=== PATIENT | male | born 1940 | race African-American/Black ===

== ENCOUNTER 2017-04-21 16:38 | Inpatient (IN) | payer MEDICARE ==
--- NOTE | 2017-04-21 17:46 | ED Physician Chart ---
ED Chief Complaint/HPI - Patient Information Date Seen:: 04/21/17 Time Seen:: 17:40 Chief Complaint:: right hip pain History of Present Illness:: Patient has had right hip pain for the last 2 weeks worse for the last 2 days. He initially denied trauma saying he slept on his right hip but later caretakers stated he fell and he agreed to that. Patient is able to walk with a cane as he did before the right hip pain started. Allergies:: Allergies Allergy/AdvReac Type Severity Reaction Status Date / Time No Known Allergies Allergy Verified 04/21/17 16:59 Vitals:: Vital Signs - 8 hr 04/21/17 16:51 Temp 98.2 F HR 72 RR 74 BP 203/106 O2 Sat % 98 Historian:: Patient, Other (caretakers) Review:: Nurse's Note Reviewed ED Review of Systems - Review of Systems General/Constitutional: No fever, No chills Skin: No skin lesions Head: No headache Eyes: No loss of vision ENT: No earache Neck: No neck pain, No swelling Cardio Vascular: No chest pain, No palpitations Pulmonary: No SOB GI: No nausea, No vomiting G/U: No dysuria Musculoskeletal: Bone or joint pain Endocrine: No polyuria Psychiatric: No prior psych history, No anxiety Hematopoietic: No bruising Allergic/Immuno: No urticaria, No angioedema Neurological: No syncope, No focal symptoms ED Past Medical History - Past Medical History Past Medical History: Other (urinary,) Family History: Other (mother when he was 8 years old and father was an alcoholic) Social History: Smoker Surgical History: other (both hips and both knees) Psychiatricy History: None Medication: Reviewed Family Medical History - Family Member Father History Unknown: Yes ED Physical Exam - Physical Examination General/Constitutional: No distress Other Gen/Cons comments:: Mildly chronically ill-appearing Head: Atraumatic Eyes: Lids, conjuctiva normal, PERRL Skin: Nl inspection, No rash ENMT: External ears, nose nl Other ENMT comments:: Edentulous Neck: No nuchal rigidity Respiratory: Nl effort/Exclusion, Clear to Auscultation Cardio Vascular: RRR GI: No tenderness/rebounding/guarding, No organomegaly, No hernia : No CVA tenderness Other Extremities comments:: Right hip: [id number] rotation causes lateral hip pain; both knees full range of motion ED Labs/Radiology/EKG Results - Radiology Results Results: right hip: prosthesis in place ED Septic Shock - . Is Septic Shock (SBP<90, OR Lactate>4 mmol\L) present?: No - <6hrs of presentation: Vital Signs: Vital Signs - 8 hr 04/21/17 16:51 Temp 98.2 F HR 72 RR 74 BP 203/106 O2 Sat % 98 ED Reassessment (Disposition) - Reassessment Reassessment Condition:: Unchanged - Diagnosis Diagnosis:: Intractable right hip pain; nicotine abuse; right hip prosthesis - Patient Disposition Admitted to:: Med/Surg Spoke to:: Rigo Kulkarni Admitting Medical Physician:: iRgo Kulkarni Condition at Disposition:: Stable, Unchanged
[2017-04-21] MEDS ORDERED: Mag Sulfate 2gm/50mL Premix 2 GM/50 ML BAG IV ONE (20:02)
[2017-04-21] MEDS ORDERED: Morphine Sulfate 2 mg/mL 1mL Syr IVP PRN (20:02)
[2017-04-21] MEDS ORDERED: Albuterol Nebulizer 2.5mg/3mL HHN PRN (20:02)
[2017-04-21] MEDS ORDERED: Ipratropium Neb 0.5 mg/2.5 mL UD IH PRN (20:02)
[2017-04-21] MEDS ORDERED: Maalox 30 mL Cup PO PRN (20:02)
[2017-04-21] MEDS ORDERED: D5-0.9%NS 1,000 ML IV SCH (20:15)
--- NOTE | 2017-04-22 08:14 | Diagnostic Imaging Report ---
Exam: Right hip joint. HISTORY: pain Findings: Multiple views of right hip joint reviewed. The study demonstrates satisfactory positioning of total right hip prosthesis. Prosthesis is well within the acetabular fossa. The visualized pelvis is intact. Left hip prosthesis is noted. IMPRESSION: 1. Satisfactory positioning of the total right hip prosthesis, no evidence of fracture or dislocation. 2. Incidentally noted degenerative changes of lumbar spine.
[2017-04-22 10:20] LABS: % BASOPHILS 0.2 % (0.0-2.0); % EOSINOPHILS 2.1 % (0.0-5.0); % LYMPHOCYTES 38.3 % (20.0-50.0); % MONOCYTES 8.8 % (2.0-10.0); % NEUTROPHILS 50.6 % (40.0-80.0); HEMATOCRIT 39.2 % (41.0-60); HEMOGLOBIN 12.8 gm/dL (12-16); MEAN CELL VOLUME 86.8 fl (80-99); MEAN CORPUSCULAR HEMOGLOBIN 28.3 pg (27.0-31.0); MEAN CORPUSCULAR HGB CONC 32.6 pg (28.0-36.0); MEAN PLATELET VOLUME 7.5 fl; NEUTROPHILE ABSOLUTE 3.4 Th/cmm (1.8-8.0); PLATELET COUNT 222 Th/cmm (150-400); RED BLOOD COUNT 4.51 Mil/cmm (3.80-5.80); RED CELL DISTRIBUTION WIDTH 13.4 % (11.5-20.0); WHITE BLOOD COUNT 6.6 Th/cmm (4.8-10.8)
[2017-04-22 10:33] LABS: ANION GAP 5.6 (7.0-16.0); BUN - UREA NITROGEN 17 mg/dL (7-25); BUN/CREATININE RATIO 15.5; CALCIUM SERUM 8.7 mg/dL (8.6-10.3); CARBON DIOXIDE 30.7 mEq/L (21.0-31.0); CHLORIDE 107 mEq/L (98-107); CREATININE - SERUM 1.1 mg/dL (0.7-1.3); GLUCOSE 86 mg/dL (70-105); POTASSIUM SERUM 3.3 mEq/L (3.5-5.1); SODIUM SERUM 140 mEq/L (136-145)
[2017-04-22] MEDS ORDERED: VTE Chemical Prophylaxis Screen/Admission MC PRN (11:37)
--- NOTE | 2017-04-22 11:46 | Internal Medicine Prog Note ---
Internal Medicine Subjective - Subjective Service Date: 04/22/17 (DICTATED [facility] [id number]) Internal Medicine Objective - Results Result Diagrams: 04/22/17 10:00 04/22/17 10:00 Recent Labs: Laboratory Last Values WBC 6.6 Th/cmm (4.8-10.8) 04/22/17 10:00 RBC 4.51 Mil/cmm (3.80-5.80) 04/22/17 10:00 Hgb 12.8 gm/dL (12-16) 04/22/17 10:00 Hct 39.2 % (41.0-60) L 04/22/17 10:00 MCV 86.8 fl (80-99) 04/22/17 10:00 MCH 28.3 pg (27.0-31.0) 04/22/17 10:00 MCHC Differential 32.6 pg (28.0-36.0) 04/22/17 10:00 RDW 13.4 % (11.5-20.0) 04/22/17 10:00 Plt Count 222 Th/cmm (150-400) 04/22/17 10:00 MPV 7.5 fl 04/22/17 10:00 Neutrophils % 50.6 % (40.0-80.0) 04/22/17 10:00 Lymphocytes % 38.3 % (20.0-50.0) 04/22/17 10:00 Monocytes % 8.8 % (2.0-10.0) 04/22/17 10:00 Eosinophils % 2.1 % (0.0-5.0) 04/22/17 10:00 Basophils % 0.2 % (0.0-2.0) 04/22/17 10:00 Sodium 140 mEq/L (136-145) 04/22/17 10:00 Potassium 3.3 mEq/L (3.5-5.1) L 04/22/17 10:00 Chloride 107 mEq/L (98-107) 04/22/17 10:00 Carbon Dioxide 30.7 mEq/L (21.0-31.0) 04/22/17 10:00 Anion Gap 5.6 (7.0-16.0) L 04/22/17 10:00 BUN 17 mg/dL (7-25) 04/22/17 10:00 Creatinine 1.1 mg/dL (0.7-1.3) 04/22/17 10:00 Est GFR ( Amer) TNP 04/22/17 10:00 Est GFR (Non-Af Amer) TNP 04/22/17 10:00 BUN/Creatinine Ratio 15.5 04/22/17 10:00 Glucose 86 mg/dL (70-105) 04/22/17 10:00 POC Glucose 110 MG/DL (70 - 105) H 04/21/17 22:19 Calcium 8.7 mg/dL (8.6-10.3) 04/22/17 10:00 - Physical Exam Vitals and I&O: Vital Signs Temp 98.1 F 04/22/17 08:00 Pulse 71 04/22/17 08:00 Resp 19 04/22/17 09:54 BP 159/80 04/22/17 05:25 Pulse Ox 96 04/22/17 08:00 Intake & Output 04/21/17 04/22/17 04/22/17 18:59 06:59 18:59 Intake Total 400 Balance 400 Weight (lbs) 229 lb 3 oz Intake: Oral 400 Other: # Voids 2 # Bowel Movements 0 Stool Characteristics Soft Soft Formed Formed Active Medications: Current Medications Acetaminophen (Tylenol) 650 mg PO Q4H PRN PRN Reason: Mild Pain Or Fever above 101 Stop: 06/20/17 20:01 Acetaminophen/Hydrocodone Bitart ([place] 5mg/325mg) 1 tab PO Q12H PRN PRN Reason: Pain (Moderate) Stop: 06/20/17 20:00 Acetaminophen/Hydrocodone Bitart ([place] 5mg/325mg) 1 tab PO Q4H PRN PRN Reason: Pain (Severe) Stop: 06/20/17 20:01 Al Hydrox/Mg Hydrox/Simethicone (Maalox) 30 ml PO Q6H PRN PRN Reason: Dyspepsia Stop: 06/20/17 20:01 Albuterol Sulfate (Albuterol 2.5mg/3ml Neb Ud) 2.5 mg HHN Q2HRT PRN PRN Reason: Shortness of Breath or Wheeze Stop: 06/20/17 20:01 Aspirin (Ecotrin) 81 mg PO DAILY ENE Stop: 06/21/17 08:59 Last Admin: 04/22/17 08:46 Dose: 81 mg Dextrose/Sodium Chloride (D5-0.9%Ns) 1,000 mls @ 80 mls/hr IV .[id number] [facility] Stop: 06/20/17 20:14 Ipratropium [place] (Atrovent Neb 0.5mg/2.5ml) 0.5 mg IH Q2HRT PRN PRN Reason: Shortness of Breath or Wheeze Stop: 06/20/17 20:01 Lorazepam (Ativan) 1 mg PO DAILY ENE PRN Reason: Protocol Stop: 06/21/17 08:59 Miscellaneous (Vte Chemical Prophylaxis Screen/ Admission) 1 ea [facility] PRN PRN PRN Reason: PROTOCOL Stop: 06/21/17 11:36 Morphine Sulfate (Morphine) 2 mg IVP Q4H PRN PRN Reason: Pain (Severe) Stop: 06/20/17 20:01 Nicotine (Nicotine Transdermal System) 7 mg TD DAILY [facility] Stop: 06/22/17 08:59 Ondansetron HCl (Zofran) 4 mg IV Q8H PRN PRN Reason: Nausea / Vomiting Stop: 06/20/17 20:01 Zolpidem Tartrate (Ambien) 5 mg PO HS PRN PRN Reason: Insomnia Stop: 06/20/17 20:00 Internal Medicine Assmt/Plan - Assessment Assessment: Acute Pain Syndrome Gen. Weakness htnooc Nicotine abuse hypokalemia
[2017-04-22] MEDS ORDERED: Potassium Chloride 20 mEq ER Tab PO ONE (12:38)
--- NOTE | 2017-04-22 13:12 | History & Physical ---
ADMIT DATE: 04/21/2017 CHIEF COMPLAINT: Right hip pain. HISTORY OF PRESENT ILLNESS: This is a 76-year-old -Filipino male who is a resident of [facility], states that he has been having right hip pain for the last 2 weeks and the pain has been unbearable the last 2 days. For this reason, the patient was brought to the ER to be evaluated. According to the patient's property developer, the patient apparently fell. PAST MEDICAL HISTORY: UTI, the patient states that he does not remember what other history he has, but based on the patient's medications, the patient has chronic pain syndrome. FAMILY HISTORY: Mother when he was 8 years old. Father was alcoholic. SOCIAL HISTORY: The patient is currently a half past smoker. The patient is also [facility] patient. PAST SURGICAL HISTORY: Bilateral hips and bilateral knees. PSYCHIATRIC HISTORY: None. MEDICATIONS: [place] and Ambien. REVIEW OF SYSTEMS: GENERAL: Denies any fevers, any chills. CARDIOVASCULAR: Denies chest pain. RESPIRATORY: Denies any shortness of breath. GASTROINTESTINAL: Denies any nausea, vomiting, or abdominal pain. GENITOURINARY: Denies any dysuria. MUSCULOSKELETAL: The patient complained of right hip pain. All other systems are reviewed by me and are negative. PHYSICAL EXAMINATION: GENERAL: The patient is awake, alert, no apparent distress. VITAL SIGNS: Temperature 98.1, heart rate 71, respirations 19, O2 96%. HEENT: Head; normocephalic, atraumatic. NECK: Supple. No mass. LUNGS: Clear bilaterally. HEART: Regular rate and rhythm. ABDOMEN: Soft, nontender. LABORATORY DATA: WBC 6.6, H and H 12.8 and 39.2, platelet of 222. Sodium 140, potassium 3.2, chloride 107, BUN 17, creatinine 1.1. DIAGNOSTICS: The patient had a hip x-ray done and the impression is satisfactory positioning of the total right hip prosthesis, no evidence of fracture or dislocation, incidentally noted degenerative changes of lumbar spine. ASSESSMENT: Acute pain syndrome, generalized weakness, nicotine abuse, hypokalemia. PLAN: The patient to be admitted to the telemetry unit. We will get PT eval. Pain management. We will continue to monitor the patient. JOB# [id number]
[2017-04-22] MEDS ORDERED: Nicotine 14 mg/24 hr Tdm TD SCH (13:30)
[2017-04-22] MEDS: Hydrocodone/APAP 5mg/325mg Tab PO PRN (20:59)
[2017-04-23] MEDS: Hydrocodone/APAP 5mg/325mg Tab PO PRN ×4 (00:10→20:34)
[2017-04-23 06:36] LABS: % BASOPHILS 0.6 % (0.0-2.0); % EOSINOPHILS 2.4 % (0.0-5.0); % LYMPHOCYTES 48.8 % (20.0-50.0); % MONOCYTES 6.7 % (2.0-10.0); % NEUTROPHILS 41.5 % (40.0-80.0); HEMATOCRIT 37.4 % (41.0-60); HEMOGLOBIN 12.7 gm/dL (12-16); MEAN CELL VOLUME 84.4 fl (80-99); MEAN CORPUSCULAR HEMOGLOBIN 28.6 pg (27.0-31.0); MEAN CORPUSCULAR HGB CONC 33.8 pg (28.0-36.0); MEAN PLATELET VOLUME 7.7 fl; NEUTROPHILE ABSOLUTE 3.2 Th/cmm (1.8-8.0); PLATELET COUNT 226 Th/cmm (150-400); RED BLOOD COUNT 4.43 Mil/cmm (3.80-5.80); RED CELL DISTRIBUTION WIDTH 13.2 % (11.5-20.0); WHITE BLOOD COUNT 7.6 Th/cmm (4.8-10.8)
[2017-04-23 06:44] LABS: ALB/GLOB RATIO 0.9 (1.0-1.8); ALKALINE PHOSPHATASE 83 U/L (34-104); ANION GAP 7.6 (7.0-16.0); BILIRUBIN,TOTAL 0.4 mg/dL (0.3-1.0); BUN - UREA NITROGEN 14 mg/dL (7-25); BUN/CREATININE RATIO 15.6; CALCIUM SERUM 8.6 mg/dL (8.6-10.3); CARBON DIOXIDE 25.6 mEq/L (21.0-31.0); CHLORIDE 106 mEq/L (98-107); CREATININE - SERUM 0.9 mg/dL (0.7-1.3); GLUCOSE 91 mg/dL (70-105); POTASSIUM SERUM 3.2 mEq/L (3.5-5.1); SGOT 19 U/L (13-39); SGPT/ALT 17 U/L (7-52); SODIUM SERUM 136 mEq/L (136-145)
[2017-04-23] MEDS: Nicotine 14 mg/24 hr Tdm TD SCH (08:36)
[2017-04-23] MEDS ORDERED: Nicotine 7 mg/24 hr Tdm TD SCH (09:00)
[2017-04-23] MEDS ORDERED: Nicotine 14 mg/24 hr Tdm TD ONE (13:14)
[2017-04-23] MEDS ORDERED: Potassium Chloride 20 mEq ER Tab PO ONE ×2 (13:56→16:00)
--- NOTE | 2017-04-23 15:14 | Internal Medicine Prog Note ---
Internal Medicine Subjective - Subjective Service Date: 04/23/17 Patient seen and examined:: with staff Patient is:: awake, verbal Patient Complaints of:: other (HIP PAIN) Internal Medicine Objective - Results Result Diagrams: 04/23/17 05:56 04/23/17 05:56 Recent Labs: Laboratory Last Values WBC 7.6 Th/cmm (4.8-10.8) 04/23/17 05:56 RBC 4.43 Mil/cmm (3.80-5.80) 04/23/17 05:56 Hgb 12.7 gm/dL (12-16) 04/23/17 05:56 Hct 37.4 % (41.0-60) L 04/23/17 05:56 MCV 84.4 fl (80-99) 04/23/17 05:56 MCH 28.6 pg (27.0-31.0) 04/23/17 05:56 MCHC Differential 33.8 pg (28.0-36.0) 04/23/17 05:56 RDW 13.2 % (11.5-20.0) 04/23/17 05:56 Plt Count 226 Th/cmm (150-400) 04/23/17 05:56 MPV 7.7 fl 04/23/17 05:56 Neutrophils % 41.5 % (40.0-80.0) 04/23/17 05:56 Lymphocytes % 48.8 % (20.0-50.0) 04/23/17 05:56 Monocytes % 6.7 % (2.0-10.0) 04/23/17 05:56 Eosinophils % 2.4 % (0.0-5.0) 04/23/17 05:56 Basophils % 0.6 % (0.0-2.0) 04/23/17 05:56 Sodium 136 mEq/L (136-145) 04/23/17 05:56 Potassium 3.2 mEq/L (3.5-5.1) L 04/23/17 05:56 Chloride 106 mEq/L (98-107) 04/23/17 05:56 Carbon Dioxide 25.6 mEq/L (21.0-31.0) 04/23/17 05:56 Anion Gap 7.6 (7.0-16.0) 04/23/17 05:56 BUN 14 mg/dL (7-25) 04/23/17 05:56 Creatinine 0.9 mg/dL (0.7-1.3) 04/23/17 05:56 Est GFR ( Amer) TNP 04/23/17 05:56 Est GFR (Non-Af Amer) TNP 04/23/17 05:56 BUN/Creatinine Ratio 15.6 04/23/17 05:56 Glucose 91 mg/dL (70-105) 04/23/17 05:56 POC Glucose 110 MG/DL (70 - 105) H 04/21/17 22:19 Calcium 8.6 mg/dL (8.6-10.3) 04/23/17 05:56 Magnesium 2.0 mg/dL (1.9-2.7) 04/23/17 05:56 Total Bilirubin 0.4 mg/dL (0.3-1.0) 04/23/17 05:56 AST 19 U/L (13-39) 04/23/17 05:56 ALT 17 U/L (7-52) 04/23/17 05:56 Alkaline Phosphatase 83 U/L (34-104) 04/23/17 05:56 Total Protein 7.4 gm/dL (6.0-8.3) 04/23/17 05:56 Albumin 3.5 gm/dL (4.2-5.5) L 04/23/17 05:56 Globulin 3.9 gm/dL 04/23/17 05:56 Albumin/Globulin Ratio 0.9 (1.0-1.8) L 04/23/17 05:56 TSH 4.00 uIU/ml (0.34-5.60) 04/23/17 05:56 - Physical Exam Vitals and I&O: Vital Signs Temp 97.7 F 04/23/17 12:00 Pulse 82 04/23/17 12:00 Resp 20 04/23/17 12:57 BP 159/117 04/23/17 12:00 Pulse Ox 98 04/23/17 12:00 Intake & Output 04/22/17 04/23/17 04/23/17 18:59 06:59 18:59 Intake Total 1500 Balance 1500 Weight (lbs) 229 lb 3 oz 238 lb 4.8 oz Intake: Oral 1500 Other: # Voids 4 3 # Bowel Movements 0 Stool Characteristics Soft Soft Soft Formed Active Medications: Current Medications Acetaminophen (Tylenol) 650 mg PO Q4H PRN PRN Reason: Mild Pain Or Fever above 101 Stop: 06/20/17 20:01 Acetaminophen/Hydrocodone Bitart ([place] 5mg/325mg) 1 tab PO Q12H PRN PRN Reason: Pain (Moderate) Stop: 06/20/17 20:00 Acetaminophen/Hydrocodone Bitart ([place] 5mg/325mg) 1 tab PO Q4H PRN PRN Reason: Pain (Severe) Stop: 06/20/17 20:01 Last Admin: 04/23/17 05:12 Dose: 1 tab Al Hydrox/Mg Hydrox/Simethicone (Maalox) 30 ml PO Q6H PRN PRN Reason: Dyspepsia Stop: 06/20/17 20:01 Albuterol Sulfate (Albuterol 2.5mg/3ml Neb Ud) 2.5 mg HHN Q2HRT PRN PRN Reason: Shortness of Breath or Wheeze Stop: 06/20/17 20:01 Aspirin (Ecotrin) 81 mg PO DAILY [facility] Stop: 06/21/17 08:59 Last Admin: 04/23/17 08:35 Dose: 81 mg Dextrose/Sodium Chloride (D5-0.9%Ns) 1,000 mls @ 80 mls/hr IV .[id number] [facility] Stop: 06/20/17 20:14 Ipratropium [place] (Atrovent Neb 0.5mg/2.5ml) 0.5 mg IH Q2HRT PRN PRN Reason: Shortness of Breath or Wheeze Stop: 06/20/17 20:01 Lorazepam (Ativan) 1 mg PO DAILY ENE PRN Reason: Protocol Stop: 06/21/17 08:59 Last Admin: 04/23/17 08:35 Dose: 1 mg Miscellaneous (Vte Chemical Prophylaxis Screen/ Admission) 1 ea [facility] PRN PRN PRN Reason: PROTOCOL Stop: 06/21/17 11:36 Morphine Sulfate (Morphine) 2 mg IVP Q4H PRN PRN Reason: Pain (Severe) Stop: 06/20/17 20:01 Last Admin: 04/22/17 13:52 Dose: 2 mg Nicotine (Nicotine Transdermal System) 14 mg TD DAILY [facility] Stop: 06/22/17 08:59 Last Admin: 04/23/17 08:36 Dose: 14 mg Ondansetron HCl (Zofran) 4 mg IV Q8H PRN PRN Reason: Nausea / Vomiting Stop: 06/20/17 20:01 Zolpidem Tartrate (Ambien) 5 mg PO HS PRN PRN Reason: Insomnia Stop: 06/20/17 20:00 Last Admin: 04/22/17 21:47 Dose: 5 mg General: alert HEENT: NC/AT, PERRLA Neck: Supple Lungs: CTAB Cardiovascular: RRR, Normal S1, Normal S2, without murmur Abdomen: soft, non-tender, non-distended, positive bowel sound Extremities: clear Internal Medicine Assmt/Plan - Assessment Assessment: Acute Pain Syndrome Gen. Weakness htnooc Nicotine abuse hypokalemia - Plan Plan: REPLACE K+ MONITOR ELECTROLYTES AM LABS FALL PRECAUTIONS CONTINUE CURRENT PLAN OF CARE
[2017-04-24 06:30] LABS: ANION GAP 9.4 (7.0-16.0); BUN - UREA NITROGEN 16 mg/dL (7-25); BUN/CREATININE RATIO 14.5; CALCIUM SERUM 9.5 mg/dL (8.6-10.3); CHLORIDE 104 mEq/L (98-107); CREATININE - SERUM 1.1 mg/dL (0.7-1.3); GLUCOSE 98 mg/dL (70-105); POTASSIUM SERUM 3.4 mEq/L (3.5-5.1); SODIUM SERUM 138 mEq/L (136-145)
[2017-04-24 06:50] LABS: % BASOPHILS 0.2 % (0.0-2.0); % EOSINOPHILS 1.4 % (0.0-5.0); % LYMPHOCYTES 40.5 % (20.0-50.0); % MONOCYTES 7.9 % (2.0-10.0); HEMATOCRIT 40.9 % (41.0-60); HEMOGLOBIN 14.1 gm/dL (12-16); MEAN CELL VOLUME 84.4 fl (80-99); MEAN CORPUSCULAR HEMOGLOBIN 29.2 pg (27.0-31.0); MEAN CORPUSCULAR HGB CONC 34.6 pg (28.0-36.0); MEAN PLATELET VOLUME 7.5 fl; NEUTROPHILE ABSOLUTE 4.6 Th/cmm (1.8-8.0); PLATELET COUNT 254 Th/cmm (150-400); RED BLOOD COUNT 4.84 Mil/cmm (3.80-5.80); RED CELL DISTRIBUTION WIDTH 13.7 % (11.5-20.0)
[2017-04-24] MEDS: Nicotine 14 mg/24 hr Tdm TD SCH (08:25)
[2017-04-24] MEDS: Hydrocodone/APAP 5mg/325mg Tab PO PRN ×2 (08:26→20:35)
[2017-04-24] MEDS ORDERED: Potassium Chloride 20 mEq ER Tab PO ONE (14:57)
--- NOTE | 2017-04-24 14:57 | Internal Medicine Prog Note ---
Internal Medicine Subjective - Subjective Service Date: 04/24/17 Patient is:: awake, verbal Patient Complaints of:: other (HIP PAIN) Internal Medicine Objective - Results Result Diagrams: 04/24/17 06:02 04/24/17 06:02 Recent Labs: Laboratory Last Values WBC 9.0 Th/cmm (4.8-10.8) 04/24/17 06:02 RBC 4.84 Mil/cmm (3.80-5.80) 04/24/17 06:02 Hgb 14.1 gm/dL (12-16) 04/24/17 06:02 Hct 40.9 % (41.0-60) L 04/24/17 06:02 MCV 84.4 fl (80-99) 04/24/17 06:02 MCH 29.2 pg (27.0-31.0) 04/24/17 06:02 MCHC Differential 34.6 pg (28.0-36.0) 04/24/17 06:02 RDW 13.7 % (11.5-20.0) 04/24/17 06:02 Plt Count 254 Th/cmm (150-400) 04/24/17 06:02 MPV 7.5 fl 04/24/17 06:02 Neutrophils % 50.0 % (40.0-80.0) 04/24/17 06:02 Lymphocytes % 40.5 % (20.0-50.0) 04/24/17 06:02 Monocytes % 7.9 % (2.0-10.0) 04/24/17 06:02 Eosinophils % 1.4 % (0.0-5.0) 04/24/17 06:02 Basophils % 0.2 % (0.0-2.0) 04/24/17 06:02 Sodium 138 mEq/L (136-145) 04/24/17 06:02 Potassium 3.4 mEq/L (3.5-5.1) L 04/24/17 06:02 Chloride 104 mEq/L (98-107) 04/24/17 06:02 Carbon Dioxide 28.0 mEq/L (21.0-31.0) 04/24/17 06:02 Anion Gap 9.4 (7.0-16.0) 04/24/17 06:02 BUN 16 mg/dL (7-25) 04/24/17 06:02 Creatinine 1.1 mg/dL (0.7-1.3) 04/24/17 06:02 Est GFR ( Amer) TNP 04/24/17 06:02 Est GFR (Non-Af Amer) TNP 04/24/17 06:02 BUN/Creatinine Ratio 14.5 04/24/17 06:02 Glucose 98 mg/dL (70-105) 04/24/17 06:02 POC Glucose 110 MG/DL (70 - 105) H 04/21/17 22:19 Calcium 9.5 mg/dL (8.6-10.3) 04/24/17 06:02 Magnesium 2.0 mg/dL (1.9-2.7) 04/23/17 05:56 Total Bilirubin 0.4 mg/dL (0.3-1.0) 04/23/17 05:56 AST 19 U/L (13-39) 04/23/17 05:56 ALT 17 U/L (7-52) 04/23/17 05:56 Alkaline Phosphatase 83 U/L (34-104) 04/23/17 05:56 Total Protein 7.4 gm/dL (6.0-8.3) 04/23/17 05:56 Albumin 3.5 gm/dL (4.2-5.5) L 04/23/17 05:56 Globulin 3.9 gm/dL 04/23/17 05:56 Albumin/Globulin Ratio 0.9 (1.0-1.8) L 04/23/17 05:56 TSH 4.00 uIU/ml (0.34-5.60) 04/23/17 05:56 - Physical Exam Vitals and I&O: Vital Signs Temp 97.4 F 04/24/17 11:55 Pulse 87 04/24/17 11:55 Resp 18 04/24/17 11:55 BP 133/95 04/24/17 11:55 Pulse Ox 98 04/24/17 11:55 Intake & Output 04/23/17 04/24/17 04/24/17 18:59 06:59 18:59 Intake Total 1500 Output Total 400 Balance 1500 -400 Weight (lbs) 238 lb 4.8 oz 238 lb Intake: Oral 1500 Output: Urine 400 Other: # Voids 5 # Bowel Movements 1 Stool Characteristics Soft Soft Active Medications: Current Medications Acetaminophen (Tylenol) 650 mg PO Q4H PRN PRN Reason: Mild Pain Or Fever above 101 Stop: 06/20/17 20:01 Acetaminophen/Hydrocodone Bitart ([place] 5mg/325mg) 1 tab PO Q12H PRN PRN Reason: Pain (Moderate) Stop: 06/20/17 20:00 Last Admin: 04/24/17 08:26 Dose: 1 tab Acetaminophen/Hydrocodone Bitart ([place] 5mg/325mg) 1 tab PO Q4H PRN PRN Reason: Pain (Severe) Stop: 06/20/17 20:01 Last Admin: 04/23/17 05:12 Dose: 1 tab Al Hydrox/Mg Hydrox/Simethicone (Maalox) 30 ml PO Q6H PRN PRN Reason: Dyspepsia Stop: 06/20/17 20:01 Albuterol Sulfate (Albuterol 2.5mg/3ml Neb Ud) 2.5 mg HHN Q2HRT PRN PRN Reason: Shortness of Breath or Wheeze Stop: 06/20/17 20:01 Aspirin (Ecotrin) 81 mg PO DAILY [facility] Stop: 06/21/17 08:59 Last Admin: 04/24/17 09:18 Dose: 81 mg Dextrose/Sodium Chloride (D5-0.9%Ns) 1,000 mls @ 80 mls/hr IV .[id number] [facility] Stop: 06/20/17 20:14 Ipratropium [place] (Atrovent Neb 0.5mg/2.5ml) 0.5 mg IH Q2HRT PRN PRN Reason: Shortness of Breath or Wheeze Stop: 06/20/17 20:01 Lorazepam (Ativan) 1 mg PO DAILY ENE PRN Reason: Protocol Stop: 06/21/17 08:59 Last Admin: 04/24/17 08:26 Dose: 1 mg Miscellaneous (Vte Chemical Prophylaxis Screen/ Admission) 1 ea [facility] PRN PRN PRN Reason: PROTOCOL Stop: 06/21/17 11:36 Morphine Sulfate (Morphine) 2 mg IVP Q4H PRN PRN Reason: Pain (Severe) Stop: 06/20/17 20:01 Last Admin: 04/22/17 13:52 Dose: 2 mg Nicotine (Nicotine Transdermal System) 14 mg TD DAILY [facility] Stop: 06/22/17 08:59 Last Admin: 04/24/17 08:25 Dose: 14 mg Ondansetron HCl (Zofran) 4 mg IV Q8H PRN PRN Reason: Nausea / Vomiting Stop: 06/20/17 20:01 Zolpidem Tartrate (Ambien) 5 mg PO HS PRN PRN Reason: Insomnia Stop: 06/20/17 20:00 Last Admin: 04/23/17 20:34 Dose: 5 mg General: alert HEENT: NC/AT, PERRLA Neck: Supple Lungs: CTAB Cardiovascular: RRR, Normal S1, Normal S2, without murmur Abdomen: soft, non-tender, non-distended, positive bowel sound Extremities: clear Internal Medicine Assmt/Plan - Assessment Assessment: Acute Pain Syndrome Gen. Weakness htnooc Nicotine abuse hypokalemia - Plan Plan: MONITOR ELECTROLYTES AM LABS FALL PRECAUTIONS CONTINUE CURRENT PLAN OF CARE
[2017-04-25 06:18] LABS: % BASOPHILS 0.1 % (0.0-2.0); % EOSINOPHILS 2.4 % (0.0-5.0); % MONOCYTES 8.9 % (2.0-10.0); % NEUTROPHILS 48.6 % (40.0-80.0); HEMATOCRIT 38.6 % (41.0-60); HEMOGLOBIN 12.8 gm/dL (12-16); MEAN CELL VOLUME 86.1 fl (80-99); MEAN CORPUSCULAR HEMOGLOBIN 28.5 pg (27.0-31.0); MEAN CORPUSCULAR HGB CONC 33.1 pg (28.0-36.0); MEAN PLATELET VOLUME 7.8 fl; NEUTROPHILE ABSOLUTE 4.3 Th/cmm (1.8-8.0); PLATELET COUNT 204 Th/cmm (150-400); RED BLOOD COUNT 4.48 Mil/cmm (3.80-5.80); RED CELL DISTRIBUTION WIDTH 13.6 % (11.5-20.0); WHITE BLOOD COUNT 8.9 Th/cmm (4.8-10.8)
[2017-04-25 06:26] LABS: ANION GAP 10.3 (7.0-16.0); BUN - UREA NITROGEN 24 mg/dL (7-25); CALCIUM SERUM 8.9 mg/dL (8.6-10.3); CARBON DIOXIDE 23.6 mEq/L (21.0-31.0); CHLORIDE 105 mEq/L (98-107); CREATININE - SERUM 1.2 mg/dL (0.7-1.3); GLUCOSE 80 mg/dL (70-105); POTASSIUM SERUM 3.9 mEq/L (3.5-5.1); SODIUM SERUM 135 mEq/L (136-145)
[2017-04-25] MEDS: Nicotine 14 mg/24 hr Tdm TD SCH (09:02)
[2017-04-25] MEDS: Hydrocodone/APAP 5mg/325mg Tab PO PRN ×2 (09:02→14:54)
--- NOTE | 2017-04-25 13:26 | Internal Medicine Prog Note ---
Internal Medicine Subjective - Subjective Service Date: 04/25/17 (dc summary [id number]) Patient is:: awake, verbal Patient Complaints of:: other (HIP PAIN) Internal Medicine Objective - Results Result Diagrams: 04/25/17 05:45 04/25/17 05:45 Recent Labs: Laboratory Last Values WBC 8.9 Th/cmm (4.8-10.8) 04/25/17 05:45 RBC 4.48 Mil/cmm (3.80-5.80) 04/25/17 05:45 Hgb 12.8 gm/dL (12-16) 04/25/17 05:45 Hct 38.6 % (41.0-60) L 04/25/17 05:45 MCV 86.1 fl (80-99) 04/25/17 05:45 MCH 28.5 pg (27.0-31.0) 04/25/17 05:45 MCHC Differential 33.1 pg (28.0-36.0) 04/25/17 05:45 RDW 13.6 % (11.5-20.0) 04/25/17 05:45 Plt Count 204 Th/cmm (150-400) 04/25/17 05:45 MPV 7.8 fl 04/25/17 05:45 Neutrophils % 48.6 % (40.0-80.0) 04/25/17 05:45 Lymphocytes % 40.0 % (20.0-50.0) 04/25/17 05:45 Monocytes % 8.9 % (2.0-10.0) 04/25/17 05:45 Eosinophils % 2.4 % (0.0-5.0) 04/25/17 05:45 Basophils % 0.1 % (0.0-2.0) 04/25/17 05:45 Sodium 135 mEq/L (136-145) L 04/25/17 05:45 Potassium 3.9 mEq/L (3.5-5.1) 04/25/17 05:45 Chloride 105 mEq/L (98-107) 04/25/17 05:45 Carbon Dioxide 23.6 mEq/L (21.0-31.0) 04/25/17 05:45 Anion Gap 10.3 (7.0-16.0) 04/25/17 05:45 BUN 24 mg/dL (7-25) 04/25/17 05:45 Creatinine 1.2 mg/dL (0.7-1.3) 04/25/17 05:45 Est GFR ( Amer) TNP 04/25/17 05:45 Est GFR (Non-Af Amer) TNP 04/25/17 05:45 BUN/Creatinine Ratio 20.0 04/25/17 05:45 Glucose 80 mg/dL (70-105) 04/25/17 05:45 POC Glucose 110 MG/DL (70 - 105) H 04/21/17 22:19 Calcium 8.9 mg/dL (8.6-10.3) 04/25/17 05:45 Magnesium 2.0 mg/dL (1.9-2.7) 04/23/17 05:56 Total Bilirubin 0.4 mg/dL (0.3-1.0) 04/23/17 05:56 AST 19 U/L (13-39) 04/23/17 05:56 ALT 17 U/L (7-52) 04/23/17 05:56 Alkaline Phosphatase 83 U/L (34-104) 04/23/17 05:56 Total Protein 7.4 gm/dL (6.0-8.3) 04/23/17 05:56 Albumin 3.5 gm/dL (4.2-5.5) L 04/23/17 05:56 Globulin 3.9 gm/dL 04/23/17 05:56 Albumin/Globulin Ratio 0.9 (1.0-1.8) L 04/23/17 05:56 TSH 4.00 uIU/ml (0.34-5.60) 04/23/17 05:56 - Physical Exam Vitals and I&O: Vital Signs Temp 97.6 F 04/25/17 08:00 Pulse 70 04/25/17 10:12 Resp 18 04/25/17 08:01 BP 149/85 04/25/17 10:12 Pulse Ox 97 04/25/17 08:01 Intake & Output 04/24/17 04/25/17 04/25/17 18:59 06:59 18:59 Intake Total 1999 Balance 1999 Weight (lbs) 238 lb 226 lb 11.2 oz Intake: Oral 1999 Other: # Voids 5 Stool Characteristics Soft Soft Active Medications: Current Medications Acetaminophen (Tylenol) 650 mg PO Q4H PRN PRN Reason: Mild Pain Or Fever above 101 Stop: 06/20/17 20:01 Acetaminophen/Hydrocodone Bitart ([place] 5mg/325mg) 1 tab PO Q12H PRN PRN Reason: Pain (Moderate) Stop: 06/20/17 20:00 Last Admin: 04/25/17 09:02 Dose: 1 tab Acetaminophen/Hydrocodone Bitart ([place] 5mg/325mg) 1 tab PO Q4H PRN PRN Reason: Pain (Severe) Stop: 06/20/17 20:01 Last Admin: 04/23/17 05:12 Dose: 1 tab Al Hydrox/Mg Hydrox/Simethicone (Maalox) 30 ml PO Q6H PRN PRN Reason: Dyspepsia Stop: 06/20/17 20:01 Albuterol Sulfate (Albuterol 2.5mg/3ml Neb Ud) 2.5 mg HHN Q2HRT PRN PRN Reason: Shortness of Breath or Wheeze Stop: 06/20/17 20:01 Aspirin (Ecotrin) 81 mg PO DAILY [facility] Stop: 06/21/17 08:59 Last Admin: 04/25/17 09:02 Dose: 81 mg Dextrose/Sodium Chloride (D5-0.9%Ns) 1,000 mls @ 80 mls/hr IV .[id number] [facility] Stop: 06/20/17 20:14 Ipratropium [place] (Atrovent Neb 0.5mg/2.5ml) 0.5 mg IH Q2HRT PRN PRN Reason: Shortness of Breath or Wheeze Stop: 06/20/17 20:01 Lorazepam (Ativan) 1 mg PO DAILY [facility] PRN Reason: Protocol Stop: 06/21/17 08:59 Last Admin: 04/25/17 09:02 Dose: 1 mg Miscellaneous ([employer] Prophylaxis Screen/ Admission) 1 ea [facility] PRN PRN PRN Reason: PROTOCOL Stop: 06/21/17 11:36 Morphine Sulfate (Morphine) 2 mg IVP Q4H PRN PRN Reason: Pain (Severe) Stop: 06/20/17 20:01 Last Admin: 04/22/17 13:52 Dose: 2 mg Nicotine (Nicotine Transdermal System) 14 mg TD DAILY [facility] Stop: 06/22/17 08:59 Last Admin: 04/25/17 09:02 Dose: 14 mg Ondansetron HCl (Zofran) 4 mg IV Q8H PRN PRN Reason: Nausea / Vomiting Stop: 06/20/17 20:01 Zolpidem Tartrate (Ambien) 5 mg PO HS PRN PRN Reason: Insomnia Stop: 06/20/17 20:00 Last Admin: 04/23/17 20:34 Dose: 5 mg General: alert HEENT: NC/AT, PERRLA Neck: Supple Lungs: CTAB Cardiovascular: RRR, Normal S1, Normal S2, without murmur Abdomen: soft, non-tender, non-distended, positive bowel sound Extremities: clear Internal Medicine Assmt/Plan - Assessment Assessment: Acute Pain Syndrome Gen. Weakness htnooc Nicotine abuse hypokalemia - Plan Plan: MONITOR ELECTROLYTES AM LABS FALL PRECAUTIONS CONTINUE CURRENT PLAN OF CARE
--- NOTE | 2017-04-25 20:55 | Discharge Summary ---
DATE OF DISCHARGE: 04/25/2017 DISCHARGE DIAGNOSES: Acute pain syndrome, generalized weakness, nicotine abuse, hypokalemia, which has resolved. HISTORY OF PRESENT ILLNESS: A 76-year-old male, who is a resident of a [facility] states that he has been having pain for the last 2 weeks. The patient states that the pain has been unbearable for the last few days, for this reason the patient was admitted. PHYSICAL EXAMINATION: GENERAL: The patient is well developed, well nourished, no acute distress. VITAL SIGNS: Stable. HEAD: Normocephalic, atraumatic. NECK: Supple. No mass. LUNGS: Clear bilaterally . ABDOMEN: Soft, nontender. HOSPITAL COURSE: During the hospital stay, the patient was admitted to the telemetry unit. The patient had PT evaluation, tolerated it well. The patient's pain was being managed. The patient had an episode of hypokalemia for the past 2 days and they were replaced. The patient is stable for discharge. CONDITION UPON DISCHARGE: Fair. DISPOSITION: [facility] and [facility]. JOB# [id number]
== END 2017-04-25 17:05 | DRG 641 ==
LOC: ER 16:38 → MSI 18:00 → TELE 22:00 → MSI 04-24 10:16
PROVIDERS: ADMIT Internal Medicine; ATTEND Internal Medicine
DX: E87.6 Hypokalemia (principal); I10 Essential (primary) hypertension; M25.551 Pain in right hip; R53.1 Weakness; G89.4 Chronic pain syndrome; Z96.653 Presence of artificial knee joint, bilateral; Z96.643 Presence of artificial hip joint, bilateral; Z53.29 Procedure and treatment not carried out because of patient's decision for other reasons; Z72.0 Tobacco use; R53.81 Other malaise
CPT/HCPCS: 36415-UA; 73501; 80048-TC; 80053-TC; 82948-90; 83735-TC; 84443-TC; 85025-TC; 93005; 94760; 97530; J2270; X3904; Z7610